=== PATIENT | female | born 1935 | race Caucasian/White ===

== ENCOUNTER 2024-03-21 12:24 | Inpatient (IN) | payer MEDICARE, OTHER ==
[~2024-03-21] VITALS: Ht 154.9 cm; Wt 42.5 kg
[2024-03-21] MEDS: OxyCODONE HCL 5 MG IR TABLET PO ONE (14:04)
[2024-03-21 14:35] LABS: COVID AG,FIA SOURCE NASAL SWAB
[2024-03-21 14:39] LABS: APPEARANCE,URINE TURBID (CLEAR); BILIRUBIN,URINE NEGATIVE (NEGATIVE); COLOR,URINE YELLOW (YELLOW); GLUCOSE, URINE (UA) NEGATIVE (NEGATIVE); KETONES,URINE NEGATIVE (NEGATIVE); LEUKOCYTE ESTERASE ,URINE LARGE (NEGATIVE); NITRATE,URINE NEGATIVE (NEGATIVE); OCCULT BLOOD,URINE MODERATE (NEGATIVE); PH,URINE 5.5 (5.0-8.0); PH,URINE DRUG SCREEN 5.5 (5.0-8.0); PROTEIN,URINE 30-70 mg/dL (NEGATIVE); SPECIFIC GRAVITIY, URINE 1.014 (1.003-1.030); UROBILINOGEN,URINE <=1.0 mg/dL (<=1.0)
[2024-03-21 14:53] LABS: AMPHET/METH SCREEN,URINE NEGATIVE (NEGATIVE); BARBITURATE SCREEN, URINE NEGATIVE (NEGATIVE); BENZODIAZEPINES SCREEN,URINE NEGATIVE (NEGATIVE); CANNABINOID SCREEN,URINE NEGATIVE (NEGATIVE); COCAINE SCREEN,URINE NEGATIVE (NEGATIVE); METHADONE SCREEN, URINE NEGATIVE (NEGATIVE); OPIATE SCREEN,URINE NEGATIVE (NEGATIVE); PHENCYCLIDINE SCREEN,URINE NEGATIVE (NEGATIVE)
[2024-03-21 14:54] LABS: ALCOHOL, URINE DRUG SCREEN NEGATIVE (NEGATIVE)
[2024-03-21 14:55] LABS: SARS-COV2 (COVID) ANTIGEN,FIA Negative (Negative)
[2024-03-21 14:59] LABS: BACTERIA,URINE Few /HPF (None Seen); SQUAMOUS EPITHELIAL CELL,UR Few /LPF (None Seen); WBC,URINE >100 /HPF (0-5)
[2024-03-21] MEDS ORDERED: AMLO5TAB66 PO (15:46)
[2024-03-21] MEDS ORDERED: BISA10SU11 PR (15:46)
[2024-03-21] MEDS ORDERED: ASCO500 PO (15:46)
[2024-03-21] MEDS ORDERED: FLUO40CA PO (15:46)
[2024-03-21] MEDS ORDERED: APIX2.5T PO (15:46)
[2024-03-21] MEDS ORDERED: MAGN-169 PO (15:46)
[2024-03-21] MEDS ORDERED: NA P133E4 PR (15:46)
[2024-03-21] MEDS ORDERED: OXYC5TAB3 PO (15:46)
[2024-03-21] MEDS ORDERED: DOCU-412 PO (15:46)
[2024-03-21] MEDS ORDERED: MULT-264 PO (15:46)
[2024-03-21] MEDS ORDERED: LACT1TAB14 PO (15:46)
[2024-03-21] MEDS ORDERED: MELA10CA PO (15:46)
[2024-03-21] MEDS ORDERED: ZINC50CA3 PO (15:46)
[2024-03-21] MEDS ORDERED: [UNRECOGNIZED DRUG - CODE] IV (15:46)
[2024-03-21 16:09] LABS: BASOPHILS % (AUTO) 0.8 % (0.0-2.0); EOSINOPHILS % (AUTO) 4.5 % (1.0-6.0); HEMATOCRIT 28.8 % (36-46); HEMOGLOBIN 9.2 g/dL (12.0-16.0); LYMPHOCYTES # (AUTO) 1.8 K/uL (1.0-4.8); LYMPHOCYTES % (AUTO) 18.8 % (22.0-44.0); MEAN CORPUSCULAR HEMOGLOBIN 30.6 pg (26.0-34.0); MEAN CORPUSCULAR HGB CONC 32.1 G/dL (31.0-37.0); MEAN CORPUSCULAR VOLUME 95 fL (80-100); MONOCYTES # (AUTO) 0.8 K/uL (0.1-1.0); MONOCYTES % (AUTO) 8.5 % (2.0-9.0); NEUTROPHILS # (AUTO) 6.5 K/uL (1.8-7.7); NEUTROPHILS % (AUTO) 67.4 % (40.0-70.0); PLATELET COUNT (AUTO) 264 K/uL (150-450); RED BLOOD CELL COUNT(AUTO) 3.02 MIL/uL (4.00-5.20); RED CELL DISTRIBUTION WIDTH 16.5 % (11.5-14.5); WHITE BLOOD COUNT (AUTO) 9.7 K/uL (4.5-11.0)
[2024-03-21 16:18] LABS: ANION GAP 9 mmol/L (8-16); CALCIUM, TOTAL 8.6 mg/dL (8.8-10.5); CARBON DIOXIDE 22 mmol/L (22-29); CHLORIDE 106 mmol/L (98-107); CREATININE 1.79 mg/dL (0.60-1.30); GLOMERULAR FILTR. RATE CALC 27 mL/min (>60); GLUCOSE,RANDOM 110 mg/dL (70-110); POTASSIUM 4.9 mmol/L (3.5-5.1); SODIUM SERUM 137 mmol/L (136-145); UREA NITROGEN, BLOOD 55 mg/dL (7-18)
[2024-03-21] MEDS: CEPHALEXIN MONOHYDRATE 500 MG CAPSULE PO ONE (16:18)
[2024-03-21 16:22] LABS: ALCOHOL, BLOOD (SERUM) < 3 mg/dL (0-10)
[2024-03-21] MEDS: SODIUM CHLORIDE 0.9% 1,000 ML IV ONE (17:53)
[2024-03-21] MEDS ORDERED: MAGNESIUM HYDROXIDE SUSPENSION 30 ML UDCUP PO PRN (21:30)
[2024-03-21] MEDS ORDERED: SODIUM PHOSPHATE,MONO-DIBASIC 133 ML ENEMA PR PRN (21:30)
[2024-03-21] MEDS ORDERED: ONDANSETRON HCL 4 MG/2 ML VIAL IVP PRN (21:30)
[2024-03-21] MEDS ORDERED: 0.9% SODIUM CHLORIDE 10 ML SYRINGE IVP PRN (21:30)
[2024-03-21] MEDS ORDERED: BISACODYL 10 MG RECTAL RECTAL SUPPOSITORY PR PRN (21:30)
[2024-03-21 22:09] LABS: CALCIUM, TOTAL 8.5 mg/dL (8.8-10.5); CREATININE 1.88 mg/dL (0.60-1.30); POTASSIUM 4.8 mmol/L (3.5-5.1)
[2024-03-21] MEDS: CefTRIAXone 1 GM/DEXTROSE 50 ML IV SCH (22:25)
[2024-03-21] MEDS: SODIUM CHLORIDE 0.45% 1,000 ML IV SCH (22:26)
[2024-03-21 23:23] VITALS: BP 138/67; PULSE 80; RESP 18; TEMP 97.5; O2SAT 100
[2024-03-22] MEDS: OxyCODONE HCL 5 MG IR TABLET PO PRN (00:41)
[2024-03-22] MEDS: APIXABAN 2.5 MG TABLET PO SCH (00:42)
[2024-03-22 05:45] VITALS: BP 138/68; PULSE 73; RESP 18; TEMP 98.3; O2SAT 97
[2024-03-22 06:30] LABS: GLUCOMETER DEV NAME(LOC) 6S.2; GLUCOSE,POINT OF CARE 131 MG/DL (70-110)
[2024-03-22 06:54] LABS: BASOPHILS % (AUTO) 0.6 % (0.0-2.0); EOSINOPHILS % (AUTO) 5.8 % (1.0-6.0); HEMATOCRIT 30.4 % (36-46); LYMPHOCYTES # (AUTO) 1.4 K/uL (1.0-4.8); LYMPHOCYTES % (AUTO) 19.1 % (22.0-44.0); MEAN CORPUSCULAR HEMOGLOBIN 31.2 pg (26.0-34.0); MEAN CORPUSCULAR HGB CONC 32.7 G/dL (31.0-37.0); MEAN CORPUSCULAR VOLUME 95 fL (80-100); MONOCYTES # (AUTO) 0.8 K/uL (0.1-1.0); MONOCYTES % (AUTO) 10.7 % (2.0-9.0); NEUTROPHILS # (AUTO) 4.5 K/uL (1.8-7.7); NEUTROPHILS % (AUTO) 63.8 % (40.0-70.0); PLATELET COUNT (AUTO) 274 K/uL (150-450); RED BLOOD CELL COUNT(AUTO) 3.19 MIL/uL (4.00-5.20); RED CELL DISTRIBUTION WIDTH 15.7 % (11.5-14.5); WHITE BLOOD COUNT (AUTO) 7.1 K/uL (4.5-11.0)
[2024-03-22 07:27] LABS: THYROID STIMULATING HORMONE 3.94 uIU/mL (0.36-3.74)
[2024-03-22 08:17] VITALS: BP 111/56; PULSE 70; RESP 18; TEMP 98.7; O2SAT 96
[2024-03-22] MEDS ORDERED: FLUoxetine HCL 20 MG CAPSULE PO SCH (09:00)
[2024-03-22] MEDS: ZINC SULFATE 220 MG CAPSULE PO SCH (09:01)
[2024-03-22] MEDS: AmLODIPine BESYLATE 5 MG TABLET PO SCH (09:02)
[2024-03-22] MEDS: MULTIVITAMINS, THERAPEUTIC TABLET PO SCH (09:02)
[2024-03-22] MEDS: ASCORBIC ACID 500 MG TABLET PO SCH (09:03)
[2024-03-22] MEDS: DOCUSATE SODIUM 250 MG CAPSULE PO PRN (09:40)
[2024-03-22] MEDS: LACTOBACILLUS ACIDOPHILUS/BULGARICUS TABLET PO SCH (09:40)
[2024-03-22 16:20] VITALS: BP 135/67; PULSE 86; RESP 18; TEMP 98.6; O2SAT 100
[2024-03-22] MEDS: FLUoxetine HCL 20 MG CAPSULE PO SCH (17:47)
[2024-03-22] MEDS: MELATONIN 5 MG TABLET PO SCH (20:26)
[2024-03-22 20:59] VITALS: BP 138/77; PULSE 90; RESP 18; TEMP 97.6; O2SAT 100
[2024-03-23 01:20] VITALS: BP 139/71; PULSE 81; RESP 16; TEMP 98.7; O2SAT 98
[2024-03-23 04:58] VITALS: BP 140/63; PULSE 72; RESP 18; TEMP 98.4; O2SAT 100
[2024-03-23 08:58] VITALS: BP 136/77; PULSE 73; RESP 19; TEMP 98.2; O2SAT 100
[2024-03-23] MEDS ORDERED: FLUoxetine HCL 20 MG CAPSULE PO SCH (09:00)
[2024-03-23] MEDS: ETHYL ALCOHOL 62% ANTISEPTIC NASAL SANITIZER 0.6 ML AMPUL NASAL SCH (09:40)
[2024-03-23 16:21] VITALS: BP 132/68; PULSE 82; RESP 18; TEMP 97.9; O2SAT 100
[2024-03-23 19:43] VITALS: BP 129/59; PULSE 82; RESP 18; TEMP 98.1; O2SAT 100
[2024-03-24 03:53] VITALS: BP 144/61; PULSE 76; RESP 18; TEMP 97.5; O2SAT 100
[2024-03-24] MEDS: ACETAMINOPHEN 325 MG TABLET PO PRN (05:00)
[2024-03-24 08:42] VITALS: BP 127/71; PULSE 66; RESP 18; TEMP 98.6; O2SAT 95
[2024-03-24 16:00] VITALS: BP 139/66; PULSE 77; RESP 18; TEMP 97.7; O2SAT 98
[2024-03-24 19:35] VITALS: BP 139/69; PULSE 93; RESP 18; TEMP 97.8; O2SAT 100
[2024-03-24] MEDS ORDERED: SODIUM CHLORIDE 0.9% 250 ML IV ONE (20:50)
[2024-03-25 04:25] VITALS: BP 141/56; PULSE 77; RESP 18; TEMP 98.6; O2SAT 100
[2024-03-25 08:04] VITALS: BP 135/71; PULSE 78; RESP 18; TEMP 97.7; O2SAT 98
[2024-03-25] MEDS ORDERED: SULF1TAB42 PO (12:42)
== END 2024-03-25 18:20 | DRG 683 ==
LOC: EMS 12:24 → EDH 21:20 → 6S 23:04
PROVIDERS: ADMIT Family Medicine; ATTEND Family Medicine
DX: N17.9 Acute kidney failure, unspecified (principal); F33.2 Major depressive disorder, recurrent severe without psychotic features; N39.0 Urinary tract infection, site not specified; R45.851 Suicidal ideations; I13.0 Hypertensive heart and chronic kidney disease with heart failure and stage 1 through stage 4 chronic kidney disease, or unspecified chronic kidney disease; Z20.822 Contact with and (suspected) exposure to COVID-19; N18.9 Chronic kidney disease, unspecified; E11.22 Type 2 diabetes mellitus with diabetic chronic kidney disease; I50.9 Heart failure, unspecified; E03.9 Hypothyroidism, unspecified; E78.00 Pure hypercholesterolemia, unspecified
CPT/HCPCS: 71045; 80048; 80307; 81001; 82962; 83735; 84443; 85025; 87081; 87086; 99285; G0480; J0696; J7050; 36415-L1; 36415-TC